=== PATIENT | male | born 1945 | race Caucasian/White ===

== ENCOUNTER 2016-08-26 15:08 | Emergency (ER) | payer OTHER, MEDICARE ==
[~2016-08-26] VITALS: Ht 180.3 cm; Wt 136.4 kg
[~2016-08-26 15:08] MED LIST: ADLT ASA LOW81 MG PO; AMOXICILLIN500 MG PO; ATENOLOL50 MG PO; B-121000 MC1 PO; CORDARONE/PACE100 MG PO; COUMADIN5 MG PO; CRESTOR20 MG PO; DUONEB IN; GLIPIZIDE ER2.5 MG PO; ISOSORB MONO30 MG PO; LEVOTHYROXIN100 MCG PO; LOSARTAN POT50 MG PO; MAGNESIUM-OX400 MG PO; MEDDOSEPAK PO; NEBULIZE2; PROVENTIL HFA IN; ROCALTROL0.5 MC1 PO; WARFARIN2.5 MG PO
[2016-08-26 15:48] LABS: HEMATOCRIT 40.9 % (39.0-50.0); HEMOGLOBIN 13.1 g/dl (14.0-18.0); IMMATURE GRANULOCYTES 0.4 % (0.0-1.0); MEAN CORPUSCULAR HGB 30.1 pG CALC (26.0-32.0); NEUT# 2.41 thou/uL (1.82-7.42); RED BLOOD COUNT 4.35 mill/uL (4.70-6.10); RED CELL DISTRI WIDTH 14.2 % (11.5-15.5)
[2016-08-26] MEDS ORDERED: SAVAYSA30 MG PO (15:48)
[2016-08-26] MEDS ORDERED: AFRIN 12 HOUR0.05 % (16:27)
[2016-08-26] MEDS ORDERED: OCEAN NASAL0.65 % (16:27)
[2016-08-26 16:33] LABS: ALBUMIN 3.4 g/dL (3.2-5.0); BILIRUBIN, TOTAL 0.9 mg/dL (0.0-1.4); CALCIUM 9.4 mg/dL (8.4-10.2); CREATININE 1.5 mg/dL (0.7-1.3); POTASSIUM 4.3 mmol/l (3.5-5.1); TOTAL PROTEIN 6.4 g/dL (6.3-8.2)
[2016-08-26 16:35] LABS: INTERNATIONAL NORMALIZED RATIO 1.2 RATIO (0.7-1.3); PROTHROMBIN TIME 13.2 SECONDS (9.0-12.5)
[2016-08-26 17:19] VITALS: BP 170/85
== END 2016-08-26 17:19 | disposition home or self-care (01) | DRG 151 ==
LOC: ED 15:08
PROVIDERS: Emergency Medicine
DX: R04.0 Epistaxis (principal); J44.9 Chronic obstructive pulmonary disease, unspecified; I10 Essential (primary) hypertension; E11.9 Type 2 diabetes mellitus without complications; E03.9 Hypothyroidism, unspecified; I25.2 Old myocardial infarction; Z95.5 Presence of coronary angioplasty implant and graft; Z95.0 Presence of cardiac pacemaker; Z79.01 Long term (current) use of anticoagulants

== ENCOUNTER 2019-06-19 | Emergency (ER) | payer OTHER ==
[~2019-06-19] MED LIST changes: +AFRIN 12 HOUR0.05 %; -CRESTOR20 MG PO; +CRESTOR40 MG PO; -GLIPIZIDE ER2.5 MG PO; +GLIPIZIDE ER5 M1 PO; +OCEAN NASAL0.65 %; +SAVAYSA30 MG PO
[2019-06-19 10:01] LABS: POTASSIUM 4.8 mmol/l (3.5-5.1)
[2019-06-19 10:16] LABS: ALBUMIN 2.4 g/dL (3.2-5.0); CREATININE 3.3 mg/dL (0.7-1.3); TOTAL PROTEIN 5.1 g/dL (6.3-8.2)
[2019-06-19] MEDS ORDERED: ELIQUIS5 MG PO (10:24)
== END 2019-06-19 09:52 | disposition expired ==
PROC: 0BH17EZ Insertion of Endotracheal Airway into Trachea, Via Natural or Artificial Opening (ICD-10-PCS; principal; 2019-06-19)
PROC: 5A12012 Performance of Cardiac Output, Single, Manual (ICD-10-PCS; 2019-06-19)
PROC: 5A2204Z Restoration of Cardiac Rhythm, Single (ICD-10-PCS; 2019-06-19)
DX: I21.3 ST elevation (STEMI) myocardial infarction of unspecified site (principal); E11.10 Type 2 diabetes mellitus with ketoacidosis without coma; I49.01 Ventricular fibrillation; I46.2 Cardiac arrest due to underlying cardiac condition; I10 Essential (primary) hypertension; Z79.84 Long term (current) use of oral hypoglycemic drugs
CPT/HCPCS: J3475